=== PATIENT | male | born 1940 | race Hispanic/Latino ===

== ENCOUNTER → 2021-09-14 | Outpatient (CLI) | payer OTHER | LOC: US 12:18 | PROVIDERS: ATTEND Internal Medicine | DX: M54.50 Low back pain, unspecified (principal); R10.11 Right upper quadrant pain; R07.89 Other chest pain | CPT/HCPCS: 71101; 76700 ==

== ENCOUNTER → 2025-06-18 | Day surgery (SDC) | payer MEDICARE ==
[2025-06-14 15:24] LABS: BASOPHILS % 1.5 % (0.0-1.0); EOSINOPHILS % 3.2 % (0.0-6.0); LYMPHOCYTES % 22.9 % (18.0-39.1); MONOCYTES % 13.4 % (4.4-11.3); NEUTROPHILS % 58.2 % (38.7-80.0); RED CELL DISTRIBUTION WIDTH 12.1 % (11.7-14.4)
[2025-06-14 15:45] LABS: EST GLOMERULAR FILTRATION RATE 66.0 ML/MIN (>=60)
[~2025-06-18] MED LIST: ACETAMINOPHEN/CODEINE 300MG - 30MG TAB ONE; ALBUTEROL0.63 MG/3 NEB; ASPIRIN81 MG PO; FENTANYL CITRATE/PF 100MCG/2 ML INJ ONE; FLONASE ALLERG9.9 ML INH; LEXAPRO10 MG PO; LIDOCAINE HCL 2% LOCAL INJ 5 ML SDV VIAL INJ ONE; METOPROLOL SUCC25 MG PO; NEXIUM40 MG PO; NITROGLYCERIN0.4 MG SL; PROPOFOL IV EMULSION 10 MG/ML 20 ML VIAL ONE; ROCURONIUM BROMIDE 1 ML IV ONE; SIMVASTATIN40 MG PO; SUCCINYLCHOLINE CHLORIDE 20 MG/ML 10ML VIAL ONE; SUGAMMADEX SODIUM 200 MG/2 ML VIAL IV ONE; TYLENOL325 MG PO; VIT B12 PO
[2025-06-18] MEDS: LACTATED RINGER'S 1,000 ML ONE (08:45)
[2025-06-18] MEDS: FENTANYL CITRATE/PF 100MCG/2 ML INJ ONE (11:50)
[2025-06-18] MEDS: ACETAMINOPHEN/CODEINE 300MG - 30MG TAB PO ONE (12:20)
[2025-06-18 13:25] VITALS: BP 144/80; PULSE 62; RESP 16; O2SAT 98
== END | disposition home or self-care (01) ==
LOC: OR 07:17
PROVIDERS: ATTEND Surgery
DX: K40.30 Unilateral inguinal hernia, with obstruction, without gangrene, not specified as recurrent (principal); I10 Essential (primary) hypertension; I25.10 Atherosclerotic heart disease of native coronary artery without angina pectoris; E78.5 Hyperlipidemia, unspecified; F41.8 Other specified anxiety disorders; K21.9 Gastro-esophageal reflux disease without esophagitis; K58.9 Irritable bowel syndrome, unspecified; G40.909 Epilepsy, unspecified, not intractable, without status epilepticus; M19.91 Primary osteoarthritis, unspecified site; G47.30 Sleep apnea, unspecified; G62.9 Polyneuropathy, unspecified; Z85.46 Personal history of malignant neoplasm of prostate; Z92.3 Personal history of irradiation; Z01.810 Encounter for preprocedural cardiovascular examination; Z01.812 Encounter for preprocedural laboratory examination; Z01.818 Encounter for other preprocedural examination; Z79.899 Other long term (current) drug therapy; Z79.82 Long term (current) use of aspirin
CPT/HCPCS: 36415; 71046; 80048; 85025; 93005; C1781; J0330; J2003